=== PATIENT | male | born 1990 | race Caucasian/White ===

== ENCOUNTER 2021-06-01 10:15 | Emergency (ER) | payer BC, SELFPAY ==
--- NOTE | 2021-06-01 12:02 | EDPHYS ---
Physician Documentation [facility] Name: Cornell Ortiz Age: 31 yrs Sex: Male : 1990 Arrival Date: 06/01/2021 Time: 10:24 Bed 12 Private MD: ED Physician Stacie Aguilar HPI: 06/01 11:58 This 31 yrs old Male presents to ER via Ambulatory with complaints of Back Pain. ma2 11:58 The symptoms are located in the low back. Associated signs and symptoms: Pertinent ma2 negatives: dysuria, hematuria, nausea, numbness, tingling, vomiting. Severity of symptoms: At their worst the symptoms were moderate, in the emergency department the symptoms are unchanged. The patient has experienced similar episodes in the past. 31 morbidly obese, he was painting a cabinet, was bending all day yesterday, and then he started to have lower back pain, radiates to the right side of the lower back, no trauma, no urinary symptoms such as urinary retention or incontinence, there is no saddle anesthesia or focal weakness. No fever.. Historical: - Allergies: 11:49 No Known Allergies; vg1 - Home Meds: 11:49 None [Active]; vg1 - PMHx: 11:49 None; vg1 - PSHx: 11:49 Appendectomy; vg1 - Immunization history:: Client reports receiving the 1st dose of the Covid vaccine. - Social history:: Smoking status: Patient reports the use of cigarette tobacco products, smokes one-half pack cigarettes per day, Patient/guardian denies using alcohol, street drugs, The patient lives with family. - Family history:: not pertinent. ROS: 11:58 Constitutional: Negative for fever, chills, and weight loss. ma2 11:58 All other systems are negative. Exam: 11:58 Constitutional: This is a well developed, well nourished patient who is awake, alert, ma2 and in no acute distress. Neck: Trachea midline, no thyromegaly or masses palpated, and no cervical lymphadenopathy. Supple, full range of motion without nuchal rigidity, or vertebral point tenderness. No Meningismus. Chest/axilla: Normal chest wall appearance and motion. Nontender with no deformity. No lesions are appreciated. Cardiovascular: Regular rate and rhythm with a normal S1 and S2. No gallops, murmurs, or rubs. Normal PMI, no JVD. No pulse deficits. Respiratory: Lungs have equal breath sounds bilaterally, clear to auscultation and percussion. No rales, rhonchi or wheezes noted. No increased work of breathing, no retractions or nasal flaring. Abdomen/GI: Soft, non-tender, with normal bowel sounds. No distension or tympany. No guarding or rebound. No evidence of tenderness throughout. Skin: Warm, dry with normal turgor. Normal color with no rashes, no lesions, and no evidence of cellulitis. MS/ Extremity: Pulses equal, no cyanosis. Neurovascular intact. Full, normal range of motion. Neuro: Awake and alert, GCS 15, oriented to person, place, time, and situation. Cranial nerves II-XII grossly intact. Motor strength 5/5 in all extremities. Sensory grossly intact. Cerebellar exam normal. Normal gait. 11:58 Back: pain, that is mild, ROM is normal, painful, with flexion, normal spinal alignment noted, CVA tenderness, is absent, muscle spasm, is appreciated in the low back area. Vital Signs: 11:47 BP 136 / 96; Pulse 99; Resp 20; Temp 98.0; Pulse Ox 96% ; Weight 167.83 kg; Height 6 vg1 ft. 2 in. (187.96 cm); Pain 10/10; 11:47 Body Mass Index 47.50 (167.83 kg, 187.96 cm) vg1 MDM: 11:58 Differential diagnosis: Ligament Injury Scoliosis sprain, Low back pain. Data reviewed: ma2 vital signs, nurses notes, EMS record. Counseling: I had a detailed discussion with the patient and/or guardian regarding: the historical points, exam findings, and any diagnostic results supporting the discharge/admit diagnosis, the presence of at least one elevated blood pressure reading (>120/80) during this emergency department visit, the need for outpatient follow up. Response to treatment: the patient's symptoms have markedly improved after treatment. ED course: Low back pain with no red flags, patient able to walk, will give steroid shot, Valium p.o., Toradol shot. And he will follow up with PCP for MRI lower back. I gave return precautions. 12:00 Patient medically screened. ma2 Administered Medications: 12:30 Drug: Ketorolac 60 mg Route: IM; Site: Ventrogluteal LEFT; iw 12:38 Follow up: Response: No adverse reaction iw 12:30 Drug: MethylPREDNISolone Sodium Succinate 125 mg Route: IM; Site: Ventrogluteal RIGHT; iw 12:38 Follow up: Response: No adverse reaction iw 12:30 Drug: Valium (diazepam) 5 mg Route: PO; iw 12:38 Follow up: Response: No adverse reaction iw Disposition Summary: 06/01/21 12:00 Discharge Ordered Location: Home ma2 Condition: Stable ma2 Diagnosis - Low back pain ma2 Followup: ma2 - With: Private Physician - When: Tomorrow - Reason: Continuance of care Discharge Instructions: - Discharge Summary Sheet ma2 - Acute Back Pain, Adult ma2 Forms: - Medication Reconciliation Form ma2 - Thank You Letter ma2 - Antibiotic Education ma2 - Prescription Opioid Use ma2 Prescriptions: - Valium 10 mg Oral Tablet - take 1 tablet by ORAL route every 8 hours As needed; 20 tablet; Refills: 0, ma2 Product Selection Permitted - Cyclobenzaprine 10 mg Oral Tablet - take 1 tablet by ORAL route every 8 hours As needed; 30 tablet; Refills: 0, ma2 Product Selection Permitted - Diclofenac Sodium 75 mg Oral Tablet Sustained Release - take 1 tablet by ORAL route 2 times per day; 30 tablet; Refills: 0, Product ma2 Selection Permitted - Medrol (Juan Jose) 4 mg Oral Tablets, Dose Pack - take 1 tablet by ORAL route as directed - follow package instructions; 1 ma2 packet; Refills: 0, Product Selection Permitted Signatures: Sue Hand RN SHAWNA Stacie Aguilar MD MD ma2 Alicia Caba RN RN vg1
--- NOTE | 2021-06-01 12:02 | ER ---
Nurse's Notes [facility] Name: Cornell Ortiz Age: 31 yrs Sex: Male : 1990 Arrival Date: 06/01/2021 Time: 10:24 Bed 12 Private MD: Diagnosis: Low back pain Presentation: 06/01 11:47 Chief complaint: Patient states: lower mid back pain that radiates to the right side of vg1 back that has been going on for four days. States 'it hurts to do anything, stand up, get out of bed, any movement'. Denies any injuries. Coronavirus screen: Vaccine status: Patient reports receiving the 1st dose of the Covid vaccine. Client denies travel out of the [place] in the last 14 days. Ebola Screen: Patient negative for fever greater than or equal to 101.5 degrees Fahrenheit, and additional compatible Ebola Virus Disease symptoms. Initial Sepsis Screen: Does the patient meet any 2 criteria? No. Patient's initial sepsis screen is negative. Does the patient have a suspected source of infection? No. Patient's initial sepsis screen is negative. Risk Assessment: Do you want to hurt yourself or someone else? Patient reports no desire to harm self or others. Onset of symptoms was May 28, 2021. 11:47 Method Of Arrival: Ambulatory [facility] 11:47 Acuity: MANUELA 3 vg1 Triage Assessment: 11:49 General: Appears in no apparent distress. uncomfortable, Behavior is calm, cooperative. vg1 Pain: Complains of pain in back Pain currently is 10 out of 10 on a pain scale. Musculoskeletal: Circulation, motion, and sensation intact. Historical: - Allergies: 11:49 No Known Allergies; vg1 - Home Meds: 11:49 None [Active]; vg1 - PMHx: 11:49 None; vg1 - PSHx: 11:49 Appendectomy; vg1 - Immunization history:: Client reports receiving the 1st dose of the Covid vaccine. - Social history:: Smoking status: Patient reports the use of cigarette tobacco products, smokes one-half pack cigarettes per day, Patient/guardian denies using alcohol, street drugs, The patient lives with family. - Family history:: not pertinent. Screenin:38 Abuse screen: Denies threats or abuse. Denies injuries from another. Nutritional iw screening: No deficits noted. Tuberculosis screening: No symptoms or risk factors identified. Fall Risk None identified. Assessment: 12:30 General: Appears in no apparent distress. Behavior is calm, cooperative. Pain: iw Complains of pain in low back area and back. Neuro: Level of Consciousness is awake, alert, obeys commands, Oriented to person, place, time, situation, Moves all extremities. Cardiovascular: Patient's skin is warm and dry. Respiratory: Respiratory effort is even, unlabored, Respiratory pattern is regular. Derm: Skin is intact, is healthy with good turgor. Musculoskeletal: Range of motion: intact in all extremities, Reports pain in back and low back area. Vital Signs: 11:47 BP 136 / 96; Pulse 99; Resp 20; Temp 98.0; Pulse Ox 96% ; Weight 167.83 kg; Height 6 vg1 ft. 2 in. (187.96 cm); Pain 10/10; 11:47 Body Mass Index 47.50 (167.83 kg, 187.96 cm) vg1 ED Course: 10:24 Patient arrived in ED. ds1 11:49 Triage completed. vg1 11:49 Arm band placed on. vg1 11:52 Stacie Aguilar MD is Attending Physician. ma2 12:17 Sue Hand RN is Primary Nurse. iw 12:30 Patient has correct armband on for positive identification. iw 12:38 No provider procedures requiring assistance completed. Patient did not have IV access iw during this emergency room visit. Administered Medications: 12:30 Drug: Ketorolac 60 mg Route: IM; Site: Ventrogluteal LEFT; iw 12:38 Follow up: Response: No adverse reaction iw 12:30 Drug: MethylPREDNISolone Sodium Succinate 125 mg Route: IM; Site: Ventrogluteal RIGHT; iw 12:38 Follow up: Response: No adverse reaction iw 12:30 Drug: Valium (diazepam) 5 mg Route: PO; iw 12:38 Follow up: Response: No adverse reaction iw Outcome: 12:00 Discharge ordered by . ma2 12:38 Discharged to home ambulatory, with family. iw 12:38 Condition: good 12:38 Discharge instructions given to patient, family, Instructed on discharge instructions, follow up and referral plans. medication usage, Demonstrated understanding of instructions, follow-up care, medications, Prescriptions given X 3. 12:39 Patient left the ED. iw Signatures: Cece Olmos ds1 Sue Hand RN RN iw Stacie Aguilar MD MD ma2 Alicia Caba RN RN vg1
[2021-06-01] MEDS ORDERED: METHYLPREDNISOLONE 125 MG INJ ONE (12:21)
[2021-06-01] MEDS ORDERED: KETOROLAC 30 MG/ML INJ ONE (12:22)
[2021-06-01] MEDS ORDERED: DIAZEPAM 5 MG TABLET ONE (12:22)
[2021-06-01 12:57] VITALS: BP 136/96; TEMP 98; O2SAT 96
== END 2021-06-01 12:39 | disposition home or self-care (01) ==
LOC: ER 10:15
DX: M54.50 Low back pain, unspecified (principal); F17.210 Nicotine dependence, cigarettes, uncomplicated
CPT/HCPCS: 96372; 99283; J2930

== ENCOUNTER 2022-02-06 14:42 | Emergency (ER) | payer SELFPAY ==
--- NOTE | 2022-02-06 16:53 | ER ---
Nurse's Notes [facility] Name: Cornell Ortiz Age: 31 yrs Sex: Male : 1990 Arrival Date: 02/06/2022 Time: 14:45 Bed 10 Private MD: Diagnosis: SARS-associated coronavirus as the cause of diseases classified elsewhere Presentation: 02/06 15:46 Chief complaint: Patient states: LANDERS, cough, congestion x 3 days. Coronavirus screen: [facility] congestion, cough unrelated to allergies, headache, Client presents with at least one sign or symptom that may indicate coronavirus-19. Standard/surgical mask placed on the client. Ebola Screen: No symptoms or risks identified at this time. Initial Sepsis Screen: Does the patient meet any 2 criteria? No. Patient's initial sepsis screen is negative. Does the patient have a suspected source of infection? No. Patient's initial sepsis screen is negative. Risk Assessment: Do you want to hurt yourself or someone else? Patient reports no desire to harm self or others. Onset of symptoms was February 03, 2022. 15:46 Method Of Arrival: Ambulatory [facility] 15:46 Acuity: MANUELA 4 jl7 Triage Assessment: 15:47 Headache History: The patient has had previous headaches and this one is similar to jl7 previous episodes. General: Appears in no apparent distress. uncomfortable, Behavior is calm, cooperative, appropriate for age. Pain: Complains of pain in LANDERS Pain currently is 4 out of 10 on a pain scale. Pain began 2-3 days ago. Also complains of no other associated symptoms. Neuro: Level of Consciousness is awake, alert, obeys commands, Oriented to person, place, time, situation. Historical: - Allergies: 15:47 No Known Allergies; jl7 - Home Meds: 15:47 None [Active]; jl7 - PMHx: 15:47 None; jl7 - PSHx: 15:47 Appendectomy; jl7 - Immunization history:: Client reports receiving the 2nd dose of the Covid vaccine. - Social history:: Smoking status: Patient reports the use of cigarette tobacco products. Screenin:46 Abuse screen: Denies threats or abuse. Denies injuries from another. Nutritional jg9 screening: No deficits noted. Tuberculosis screening: No symptoms or risk factors identified. Fall Risk None identified. Assessment: 17:00 Reassessment: No changes from previously documented assessment. Patient and/or family jg9 updated on plan of care and expected duration. Pain level reassessed. Patient is alert, oriented x 3, equal unlabored respirations, skin warm/dry/pink. Pain:. Vital Signs: 15:46 BP 126 / 84; Pulse 103; Resp 17; Temp 98.6; Pulse Ox 95% ; Weight 170.1 kg; Height 6 7 ft. 2 in. (187.96 cm); Pain 4/10; 16:45 BP 127 / 84; Pulse 101; Resp 20 S; Pulse Ox 98% on R/A; jg9 15:46 Body Mass Index 48.15 (170.10 kg, 187.96 cm) 7 ED Course: 14:45 Patient arrived in ED. rg4 15:41 Kahlil Brown PA is PHCP. cp 15:41 Kahlil Alonso MD is Attending Physician. cp 15:47 Triage completed. 7 15:47 Arm band placed on right wrist. 7 15:48 COVID swab sent to lab. Flu and/or RSV swab sent to lab. Strep swab sent to lab. jl7 16:44 Bed in low position. Call light in reach. Side rails up X 1. Door closed. Noise mb7 minimized. 16:46 Allison Martin, SHAWNA is Primary Nurse. jg9 17:12 No provider procedures requiring assistance completed. jg9 17:24 Patient did not have IV access during this emergency room visit. jg9 Administered Medications: 15:42 CANCELLED (Physician Discretion): Tessalon Perle (benzonatate) 200 mg PO once cp Medication: 17:12 VIS not applicable for this client. jg9 Outcome: 16:53 Discharge ordered by . cp 17:12 Condition: stable jg9 17:24 Discharged to home ambulatory. jg9 17:24 Discharge instructions given to patient, Instructed on discharge instructions, follow up and referral plans. Demonstrated understanding of instructions, follow-up care, Prescriptions given X 3. 17:24 Patient left the ED. jg9 Signatures: Kahlil Brown PA PA Argelia Rodriguez rg4 John Faiban RN RN jl7 Misa Gomez 7 Allison Martin RN RN jg9
--- NOTE | 2022-02-06 16:53 | EDPHYS ---
Physician Documentation [facility] Name: Cornell Ortiz Age: 31 yrs Sex: Male : 1990 Arrival Date: 02/06/2022 Time: 14:45 Bed 10 Private MD: MARILUZ Physician Kahlil Alonso HPI: 02/06 15:45 This 31 yrs old Male presents to ER via Ambulatory with complaints of Headache, cp Congestion, Cough. 15:45 The patient complains of pain to the top of head and forehead. The patient describes cp the headache as aching. Associated signs and symptoms: Pertinent positives: cough, congestion, Pertinent negatives: fever, neck stiffness, vomiting, weakness. Severity of symptoms: in the emergency department the pain is unchanged, despite home interventions. Historical: - Allergies: 15:47 No Known Allergies; jl7 - Home Meds: 15:47 None [Active]; jl7 - PMHx: 15:47 None; jl7 - PSHx: 15:47 Appendectomy; jl7 - Immunization history:: Client reports receiving the 2nd dose of the Covid vaccine. - Social history:: Smoking status: Patient reports the use of cigarette tobacco products. ROS: 15:50 Constitutional: Negative for chills, fever, poor PO intake. cp 15:50 Eyes: Negative for injury, pain, redness, and discharge. cp 15:50 ENT: Negative for drainage from ear(s), ear pain, sore throat, difficulty swallowing, difficulty handling secretions. 15:50 Cardiovascular: Negative for chest pain, edema, palpitations. 15:50 Respiratory: Positive for cough, "sounds productive", Negative for shortness of breath, wheezing. 15:50 Abdomen/GI: Negative for abdominal pain, nausea, vomiting, and diarrhea. 15:50 Neuro: Positive for headache, Negative for altered mental status, weakness. cp 15:50 All other systems are negative. cp Exam: 15:55 Constitutional: The patient appears in no acute distress, alert, awake, non-toxic, well cp developed, well nourished. 15:55 Head/Face: Normocephalic, atraumatic. cp 15:55 Eyes: Periorbital structures: appear normal, Conjunctiva: normal, no exudate, no injection, Sclera: no appreciated abnormality, Lids and lashes: appear normal, bilaterally. 15:55 ENT: External ear(s): are unremarkable, Ear canal(s): are normal, clear, TM's: dullness, bilaterally, Nose: is normal, Mouth: Lips: moist, Oral mucosa: pink and intact, moist, Posterior pharynx: Airway: no evidence of obstruction, patent, Tonsils: with erythema, no enlargement, no exudate, swelling, is not appreciated, erythema, that is mild, exudate, is not appreciated. 15:55 Neck: ROM/movement: is normal, is supple, no meningismus, no nuchal rigidity. 15:55 Chest/axilla: Inspection: normal. 15:55 Cardiovascular: Rate: tachycardic, Rhythm: regular. 15:55 Respiratory: the patient does not display signs of respiratory distress, Respirations: normal, no use of accessory muscles, no retractions, labored breathing, is not present, Breath sounds: decreased breath sounds, are not appreciated, + upper airway congestion. wheezing: is not appreciated. 15:55 Abdomen/GI: Exam negative for discomfort, distension, guarding, Inspection: abdomen appears normal. 15:55 Skin: cellulitis, is not appreciated, no rash present. 15:55 Neuro: Orientation: to person, place \\T\\ time. Mentation: is normal, Motor: moves all fours, strength is normal, Sensation: is normal, Gait: is steady, at a normal pace, without difficulty. Vital Signs: 15:46 BP 126 / 84; Pulse 103; Resp 17; Temp 98.6; Pulse Ox 95% ; Weight 170.1 kg; Height 6 jl7 ft. 2 in. (187.96 cm); Pain 4/10; 16:45 BP 127 / 84; Pulse 101; Resp 20 S; Pulse Ox 98% on R/A; jg9 15:46 Body Mass Index 48.15 (170.10 kg, 187.96 cm) jl7 MDM: 16:00 Differential diagnosis: migraine, otitis, sinusitis, COVID-19, strep throat, influenza. cp 16:44 Patient medically screened. cp 16:52 Data reviewed: vital signs, nurses notes, lab test result(s). ED course: VSS. Patient cp appears non-toxic and no signs of respiratory distress. Will discharge to home for continued monitoring. 16:53 Counseling: I had a detailed discussion with the patient and/or guardian regarding: the cp historical points, exam findings, and any diagnostic results supporting the discharge/admit diagnosis, lab results, to return to the emergency department if symptoms worsen or persist or if there are any questions or concerns that arise at home. 02/06 15:37 Order name: COVID-19 SARS RT PCR (Document "Date of Onset" if Symptomatic); Complete jl7 Time: 16:45 02/06 16:45 Interpretation: Reviewed. cp 02/06 15:41 Order name: Strep; Complete Time: 16:45 cp 02/06 15:41 Order name: Influenza Screen (a \\T\\ B); Complete Time: 16:45 cp 02/06 16:43 Order name: Throat Culture EDMS Administered Medications: 15:42 CANCELLED (Physician Discretion): Tessalon Perle (benzonatate) 200 mg PO once cp Disposition Summary: 02/06/22 16:53 Discharge Ordered Location: Home cp Problem: new cp Symptoms: are unchanged cp Condition: Stable cp Diagnosis - SARS-associated coronavirus as the cause of diseases classified elsewhere cp Followup: cp - With: Private Physician - When: 2 - 3 days - Reason: Worsening of condition Discharge Instructions: - Discharge Summary Sheet cp - Aspirin and Your Heart cp - Form - Excuse from Work, School, or Physical Activity cp - COVID-19 cp - Things to Know about the COVID-19 Pandemic - [facility] cp - 10 Things You Can Do to Manage Your COVID-19 Symptoms at Home - [facility] cp - COVID-19: Quarantine vs. Isolation - [facility] cp - Prevent the Spread of COVID-19 if You Are Sick - [facility] cp Forms: - Medication Reconciliation Form cp - Thank You Letter cp - Antibiotic Education cp - Prescription Opioid Use cp Prescriptions: - Bromfed DM 2-30-10 mg/5 mL Oral syrup - take 10 milliliter by ORAL route every 4 hours; 200 milliliter; Refills: 0, cp Product Selection Permitted - Paxlovid (EUA) 150 mg x 2- 100 mg Oral tablet - take 3 tablet by ORAL route 2 times per day for 5 days per package directions; cp 30 tablet; Refills: 0, Product Selection Permitted - Ibuprofen 800 mg Oral Tablet - take 1 tablet by ORAL route every 8 hours As needed take with food; 30 tablet; cp Refills: 0, Product Selection Permitted Signatures: Dispatcher [employer] EDMS Kahlil Brown PA PA cp Leal, Jahala RN RN jl7 Corrections: (The following items were deleted from the chart) 15:42 15:41 Tessalon Perle (benzonatate) 200 mg PO once ordered. cp cp
[2022-02-07 01:23] VITALS: TEMP 98.6
[2022-02-07 01:29] VITALS: BP 127/84; O2SAT 98
== END 2022-02-06 17:24 | disposition home or self-care (01) ==
LOC: ER 14:42
DX: U07.1 COVID-19 (principal); F17.210 Nicotine dependence, cigarettes, uncomplicated
CPT/HCPCS: 87070; 87081; 87804; 99283; U0003

== ENCOUNTER 2022-09-23 05:08 | Emergency (ER) | payer BC, SELFPAY ==
--- OUTSIDE RECORDS SUMMARY | 2022-09-23 05:11 | XMS REPORT | Continuity of Care Document ---
:1990 Author Organization [facility] t Address [address] [place] [address] Care Team Providers Name Role Phone ARJUN ALLISON Attending Clinician Unavailable Problems This patient has no known problems. Allergies, Adverse Reactions, Alerts This patient has no known allergies or adverse reactions. Medications This patient has no known medications. Procedures This patient has no known procedures. Encounters Start End Encounter Admission Attending Care Care Encounter Source Date/Time Date/Time Type Type Clinicians Facility Department ID 2022-10-10 2022-10-10 Outpatient JARRED ALLISON [id number] 08:45:00 08:45:00 ARJUN auguste 2022-09-12 2022-09-12 Outpatient HALEY DE LEON [id number] 16:22:41 16:22:41 [id number] F Yoan Results This patient has no known results.
[2022-09-23 05:54] LABS: Absolute Lymphocytes (CBC) 3.2 K/uL (0.7-4.9); Hematocrit 43.4 % (39.6-49.0); Lymphocytes % 19.4 % (15.3-44.8); MCV 83.2 fL (80-100); MPV 8.7 fL (7.6-11.3); RBC Red Blood Cell Count 5.21 M/uL (4.33-5.43)
[2022-09-23 06:14] LABS: ALT/SGPT 44 U/L (16-61); AST/SGOT 28 U/L (15-37); Albumin 3.6 g/dL (3.4-5.0); Alkaline Phosphatase 111 U/L (45-117); BUN Blood Urea Nitrogen 11 mg/dL (7-18); Bicarbonate 24 mEq/L (21-32); Bilirubin Direct 0.1 mg/dL (0-0.2); Bilirubin Total 0.2 mg/dL (0.2-1.0); Glomerular Filtration Rate 100 ml/min (=/>90); Glucose Level 134 mg/dL (74-106); Potassium 3.6 mEq/L (3.5-5.1); Protein, Total 8.4 g/dL (6.4-8.2); Sodium Level 134 mEq/L (136-145)
[2022-09-23] MEDS ORDERED: NA CHLORIDE 0.9% 2,000 ML ONE (06:19)
[2022-09-23] MEDS ORDERED: THIAMINE 200 MG/2 ML INJ ONE (06:19)
[2022-09-23] MEDS ORDERED: TETANUS & DIPHTHERIA TOX,ADULT 0.5 ML VIAL ONE (07:20)
[2022-09-23 08:49] LABS: Barbiturates NEGATIVE (NEGATIVE); Benzodiazepines NEGATIVE (NEGATIVE); Cocaine NEGATIVE (NEGATIVE); METHAMPHETAM NEGATIVE (NEGATIVE); Methadone NEGATIVE (NEGATIVE); Opiates NEGATIVE (NEGATIVE); Phencyclidine NEGATIVE (NEGATIVE); THC Cannibis NEGATIVE (NEGATIVE)
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
[2022-09-23 10:14] VITALS: TEMP 97.9
[2022-09-23 10:25] VITALS: BP 125/83; O2SAT 98
[2022-09-23 11:34] LABS: Blood Morphology Comment NOT SEEN (NOT SEEN); Platelet Estimate ADEQ
--- NOTE | 2022-09-24 13:22 | RAD REPORT ---
EXAM DESCRIPTION: CT - Head C Spine Mpr Wo Con - 09/24/2022 6:39 am CLINICAL HISTORY: 32 years Male DIZZINESS TECHNIQUE: Noncontrast CT head and cervical spine with coronal and sagittal reformats. All CT scans at this facility use dose modulation, iterative reconstruction, and/or weight based dosing when appro priate to reduce radiation dose to as low as reasonably achievable. COMPARISON: None. FINDINGS: HEAD: Brain: No intracranial hemorrhage, midline shift, mass or mass effect. No obvious large acute territo rial infarction. Ventricles: No hydrocephalus. Orbits: Nondisplaced left medial orbital wall fracture. Sinus: Partial opacification of the left ethmoid sinus and bilateral maxillary sinusitis. Mastoid: clear Osseous: Comminuted nondisplaced bilateral nasal bone fractures. Soft tissues: Mild right greater than left bilateral facial soft tissue swelling.. CERVICAL SPINE: Limitation: Study is degraded by motion artifact. Vertebra: Motion artifact limits evaluation of C6. No acute fracture in the remainder of the visualiz ed osseous structures. Canal: No high grade spinal canal stenosis. Alignment: Straightening of the normal cervical lordosis without spondylolisthesis. Soft tissues: Unremarkable. Lungs: Visualized lung apices are clear. IMPRESSION: Head: 1. No acute intracranial findings. 2. Nondisplaced left medial orbital wall fracture. 3. Comminuted nondisplaced bilateral nasal bone fractures with overlying soft tissue swelling. 4. Right greater than left bilateral facial soft tissue swelling. Cervical spine: 1. Motion artifact limits evaluation of C6. Consider repeat evaluation at this level. 2. No acute fracture in the remainder of the visualized osseous structures. Electronically signed by: Daniel Beltran MD 09/23/2022 7:22 AM CDT Due to temporary technical issues with the PACS/Fluency reporting system, reports are being signed by the in house radiologist without review as a courtesy to ensure prompt reporting. The interpreting r adiologist is fully responsible for the content of the report.
== END 2022-09-23 09:55 | disposition home or self-care (01) ==
LOC: ER 05:08
DX: S02.30XA Fracture of orbital floor, unspecified side, initial encounter for closed fracture (principal); S02.2XXA Fracture of nasal bones, initial encounter for closed fracture; F10.10 Alcohol abuse, uncomplicated; Z23 Encounter for immunization
CPT/HCPCS: 85025; 80048; 36415; 80076; 80307; 70450; 72125; 90714; J3411; J7030; G0480 ×3; 90471; 96361; 96365; 99284